=== PATIENT | female | born 1995 | race African-American/Black ===

== ENCOUNTER 2017-12-02 14:41 | Inpatient (IN) | payer OTHER ==
--- NOTE | 2017-11-28 22:10 | NUR ---
SCHEDULED MEDICATION GIVEN AND TOLERATED WELL. IMURAN NOT AVAILABLE IN [employer] NOR [employer]. CHARGE NURSE AP AWARE. CHISEL TRIMMER OMERO CONTACTED HOWEVER SHE DOES NOT HAVE ACCESS TO MEDICATION EITHER. DR. CEDILLO AND DR. GREY AWARE. MEDICATION WILL BECOME AVAILABLE IN THE MORNING BY PHARMACY. DOCUMENTED MEDICATION IS NOT AVAILABLE. Addendum: 12/03/17 at 0231 by Missy Leong RN PLEASE DISREGARD. WRONG DATE CHARTED.
[~2017-12-02] VITALS: Ht 165.1 cm; Wt 65.3 kg
[2017-12-02 14:46] VITALS: BP 114/69
[2017-12-02] MEDS ORDERED: ONDANSETRON 4 MG/2 ML VIAL IVP ONE (14:55)
[2017-12-02] MEDS ORDERED: MORPHINE SULFATE 4 MG/ML SYR IVP ONE ×2 (14:55→16:25)
[2017-12-02] MEDS ORDERED: NACL 0.9% 2,000 ML IV ONE (14:55)
--- NOTE | 2017-12-02 15:03 | NUR ---
PATIENT BIBA WITH COMPLAINTS OF RIGHT SIDED CHEST PAIN. PATIENT REPORTS SICKEL CELL CRISIS, , AND RHEMATOID ARTHRITIS. PATIENT STATES SEVERE PAIN 10/10. HEART RATE IS SINUS TACHY. [facility] ABLE TO OBTAIN IV IN RIGHT FOOT. PATIENT WAS FOUND AT [facility]. PATIENT REPORTS UNABLE TO EAT OR DRINK FOR 3 DAYS. PATIENT STARTED ON 1L NS PER VERBAL ORDER. PATIENT ASSISTED INTO GOWN AND PROVIDED BED ANDERSEN FOR URINE AMPLE. URINE SENT TO LAB. PATIENT POSITIONED FOR COMFORT; HOB ELEVATED; BEDRAILS UP X2; BED DOWN. ER MD MADE AWARE OF PT STATUS.
[2017-12-02 16:08] LABS: APPEARANCE,URINE SL CLOUDY (CLEAR); BLOOD, URINE 2+ (NEGATIVE); COLOR,URINE YELLOW (YELLOW); LEUKOCYTE ESTERASE ,URINE NEGATIVE (NEGATIVE); NITRITE, URINE NEGATIVE (NEGATIVE); PH,URINE 7.5 (5.0-9.0); UGLUCOSE NEGATIVE (NEGATIVE)
[2017-12-02 16:24] LABS: PROTHROMBIN TIME 10.5 secs (10.8-13.4)
[2017-12-02 16:28] LABS: BASOPHILS % (AUTO) 0.3 % (0.0-2.0); HEMATOCRIT 35.3 % (36-48); HEMOGLOBIN 11.6 g/dL (12.0-16.0); LYMPHOCYTES # (AUTO) 1.2 K/uL (2.5-16.5); LYMPHOCYTES % (AUTO) 30.5 % (20.5-51.1); MEAN CORPUSCULAR HEMOGLOBIN 27 pg (27-31); MEAN CORPUSCULAR HGB CONC 33 g/dL (33-37); MONOCYTES # (AUTO) 0.5 K/uL (0.8-1.0); MONOCYTES % (AUTO) 12.7 % (1.7-9.3); NEUTROPHILS # (AUTO) 2.2 K/uL (1.8-7.7); NEUTROPHILS % (AUTO) 56.5 % (42.2-75.2); PLATELET COUNT (AUTO) 425 K/uL (140-450); RED BLOOD CELL COUNT(AUTO) 4.35 MIL/uL (4.20-5.40); RED CELL DISTRIBUTION WIDTH 18.1 % (11.6-13.7)
[2017-12-02 16:29] LABS: ALBUMIN 3.1 g/dL (3.4-5.0); ANION GAP 15.8 (8-16); CARBON DIOXIDE 22.6 mmol/L (21-32); CREATININE 0.6 mg/dL (0.6-1.3); POTASSIUM 3.4 mmol/L (3.5-5.1); TOTAL BILIRUBIN 0.3 mg/dL (0.0-1.0)
[2017-12-02] MEDS ORDERED: HYDROmorphone PFS 2 MG/ML SYR IVP ONE (16:35)
[2017-12-02 16:56] LABS: BILIRUBIN,URINE NEGATIVE (NEGATIVE)
--- NOTE | 2017-12-02 17:09 | NUR ---
SPOKE WITH GILMER GARCIA AT [facility] TO GIVE REPORT.
--- NOTE | 2017-12-02 17:14 | NUR ---
RECIEVED CALL FROM LAB, PATIENT POSITIVE FOR ANTIBODY.
[2017-12-02] MEDS ORDERED: ACETAMINOPHEN 325 MG TAB PO PRN (17:40)
[2017-12-02] MEDS ORDERED: ONDANSETRON 4 MG/2 ML VIAL IM/IVP PRN (17:40)
[2017-12-02] MEDS ORDERED: HYDROcodone/APAP 5/325 MG 1 TAB TAB PO PRN (17:55)
[2017-12-02] MEDS ORDERED: MORPHINE SULFATE 2 MG/ML SYR IVP PRN (17:55)
--- NOTE | 2017-12-02 18:02 | NUR ---
Patient will be admitted to care of DR. COLLIER. Admited to TELE. Will go to room 112A. Belongings list completed. Report to DAVID CROSS.
[2017-12-02 18:16] VITALS: BP 130/90
--- NOTE | 2017-12-02 18:16 | NUR ---
PT ARRIVED FROM ER IN [facility], REPORT RECEIVED FROM ER NURSE, PT AWAKE ALERT, ABLE TO TRNASFER FROM [facility] TO BED, RESP EVEN UNLABORED, SKIN WARM DRY COLOR WNL FOR RACE, C/O 10/10 PAIN IN JOINTS THROUGH OUT THE BODY, WILL MEDICATE PER ORDER, PT ORIENTED TO ROOM AND FLOOR, PLAN OF CARE REVIEWED, ALL SAFETY MEASURES IN PLACE, WILL CONTINUE TO MONITOR.
[2017-12-02 18:18] LABS: BARBITURATE, URINE NEG. ng/ml (NEG <=200); BENZODIAZEPINE, URINE NEG. ng/mL (NEG <=200); CANNABINOID, URINE POS. ng/mL (NEG <=50); COCAINE, URINE NEG. ng/mL (NEG <=300); OPIATE, URINE POS. ng/mL (NEG <=2000); PHENCYCLIDINE SCREEN,URINE NEG. ng/mL (NEG <=25)
[2017-12-02 18:19] LABS: CHOL/HDL RATIO 3.5 (1-4.5); MAGNESIUM 1.7 mg/dL (1.8-2.4); PHOSPHORUS 3.8 mg/dL (2.5-4.9); THYROID STIMULATING HORMONE 0.16 uIU/mL (0.34-3.74)
--- NOTE | 2017-12-02 18:20 | NUR ---
PT PLACED ON BEDPAN FOR URINATION.
--- NOTE | 2017-12-02 18:30 | NUR ---
DR CEDILLO AT BEDSIDE FOR EVAL.
[2017-12-02] MEDS: NACL 0.9% 1,000 ML IV SCH (18:36)
[2017-12-02] MEDS ORDERED: HYDROMORPHONE HCL 4 MG PO SCH (18:45)
--- NOTE | 2017-12-02 18:49 | NUR ---
PT C/O PAIN 10/10 THROUGHOUT BODY JOINTS, OFFERED MORPHINE BUT REFUSED, PT REQUESTS DILAUDID, AWAITING DILAUDID ORDER FROM DR CEDILLO, PT STATES SHE WANTS TO WAIT FOR DILAUDID BECAUSE MORPHINE DOES NOT WORK.
[2017-12-02] MEDS ORDERED: AZAT50TA PO (19:04)
[2017-12-02] MEDS ORDERED: ACET-2863 PO (19:04)
[2017-12-02] MEDS ORDERED: ALPR0.5T2 PO (19:04)
[2017-12-02] MEDS ORDERED: HYDR200T5 PO (19:04)
[2017-12-02] MEDS ORDERED: QUET100T PO (19:04)
[2017-12-02] MEDS ORDERED: LOV40I SUBQ (19:04)
[2017-12-02] MEDS ORDERED: HYDR1LIQ6 PO (19:04)
[2017-12-02] MEDS ORDERED: LEFL20TA18 PO (19:04)
[2017-12-02] MEDS ORDERED: PRED20TA5 PO (19:04)
--- NOTE | 2017-12-02 19:20 | NUR ---
REPORT GIVEN TO DEVOPS ENGINEER NURSE DR MAMADOU CLEMENTE AT BEDSIDE. PT SITTING UP DRINKING JUICE, REGULAR DINNER TRAY LATE TRAY REQUESTED TO KITCHEN.
--- NOTE | 2017-12-02 19:21 | NUR ---
RECEIVED REPORT FROM DAY SHIFT NURSE DAVID-RN. PT FAMILY AT BEDSIDE. PT AOX4, ON ROOM AIR WITH IV SITE RIGHT FOOT #22G-NS RUNNING AT 100ML/HR. SKIN INTACT. ON TELE MONITORING. DISCUSSED PLAN OF CARE AND PT VERBALIZED UNDERSTANDING. NO S/S OF RESPIRATORY DISTRESS NOTED AT THIS TIME. PT C/O PAIN 02/16-WILL MEDICATE. BED IN LOWEST POSITION, BED BREAKS ON, AND BOTH SIDE RAILS UP. BED SIDE TABLE AND CALL LIGHT WITHIN REACH. WILL CONTINUE TO MONITOR.
[2017-12-02] MEDS ORDERED: HYDROmorphone 1 MG/ML AMP IVP SCH (19:30)
[2017-12-02] MEDS ORDERED: POTASSIUM CHLORIDE 8 MEQ TABER PO SCH (19:35)
[2017-12-02] MEDS ORDERED: MAGNESIUM OXIDE 400 MG TAB PO ONE (19:35)
--- NOTE | 2017-12-02 19:45 | NUR ---
MEDICATED PT WITH DILAUDID FOR PAIN 10/[address] CEDILLO. PT TOLERATED WELL. NO S/S OF RESPIRATORY DISTRESS. PT FAMILY CONTINUES TO BE AT BEDSIDE. WILL CONTINUE TO MONITOR.
[2017-12-02 20:00] VITALS: BP 131/95
--- NOTE | 2017-12-02 20:00 | NUR ---
VITAL SIGNS TAKEN AND TOLERATED WELL. O2 SAT 99% DESPITE NO OXYGEN SUPPLEMENT GIVEN AT THIS TIME DUE TO PT REFUSAL. NO S/S OF RESPIRATORY DISTRESS OR DISCOMFORT NOTED AT THIS TIME. WILL CONTINUE TO MONITOR.
[2017-12-02 20:35] LABS: RBC,URINE 11-20 (MOD) /HPF (0-5); WBC,URINE 0-5 (RARE) /HPF (0-5)
[2017-12-02] MEDS ORDERED: HYDROcodone/APAP 7.5/325 MG 1 TAB PO SCH (21:00)
[2017-12-02] MEDS ORDERED: ALPRAZolam 0.5 MG TAB PO SCH (21:00)
[2017-12-02] MEDS: azaTHIOprine 50 MG TAB PO SCH (21:00)
--- NOTE | 2017-12-02 21:00 | NUR ---
PT REFUSING TO TAKE MEDICATION UNTIL ANOTHER DOSE OF DILAUDID IS GIVEN. PT CONTINUES TO C/O PAIN 02/16. DR. CEDILLO AND DR. SHIRLEY AWARE AND WILL BE SPEAKING WITH PT.
--- NOTE | 2017-12-02 21:15 | NUR ---
CONTINUE TO OFFER OXYGEN ORDERED HOWEVER PT CONTINUES TO REFUSE OXYGEN AT THIS TIME DESPITE EDUCATING PT ON OXYGEN POSSIBLY HELPING TO DECREASE PAIN LEVEL. WILL CONTINUE TO MONITOR.
[2017-12-02] MEDS: HYDROcodone/APAP 10/325 MG 1 TAB TAB PO SCH (21:25)
[2017-12-02] MEDS ORDERED: MAGNESIUM OXIDE 400 MG TAB ONE (21:40)
[2017-12-02] MEDS ORDERED: HYDROcodone/APAP 7.5/325 MG 1 TAB ONE (21:41)
[2017-12-02] MEDS ORDERED: HYDROmorphone 2 MG TAB PO PRN (21:45)
[2017-12-02] MEDS: QUEtiapine FUMARATE 100 MG TAB PO SCH (22:08)
[2017-12-02] MEDS: HYDROXYCHLOROQUINE 200 MG TAB PO SCH (22:08)
--- NOTE | 2017-12-02 22:10 | NUR ---
SCHEDULED MEDICATION GIVEN AND TOLERATED WELL. IMURAN NOT AVAILABLE IN [facility] NOR [facility] [employer]. CHARGE NURSE AP AWARE. CIVIL ENGINEERING DRAFTSPERSON OMERO CONTACTED HOWEVER SHE DOES NOT HAVE ACCESS TO MEDICATION EITHER. DR. CEDILLO AND DR. GREY AWARE. MEDICATION WILL BECOME AVAILABLE IN THE MORNING BY PHARMACY. DOCUMENTED MEDICATION IS NOT AVAILABLE.
--- NOTE | 2017-12-02 22:10 | NUR ---
SCHEDULED MEDICATION GIVEN AND TOLERATED WELL. PT CONTINUES TO REFUSE OXYGEN VIA NASAL CANNULA DESPITE BREATHING DISCOMFORTS. WILL CONTINUE TO MONITOR.
[2017-12-02] MEDS: ENOXAPARIN 40 MG/0.4 ML SYR SUBQ SCH (22:20)
--- NOTE | 2017-12-02 22:20 | NUR ---
LOVENOX GIVEN AND TOLERATED WELL. WILL CONTINUE TO MONITOR.
--- NOTE | 2017-12-02 23:40 | NUR ---
PT REFUSED BLOOD DRAW FROM SALES DEPARTMENT MANAGER STATING, "I DON'T WANT TO GET STUCK AGAIN."
[2017-12-03] VITALS: BP 119/77
[2017-12-03] MEDS ORDERED: IBUPROFEN 800 MG TAB PO SCH
--- NOTE | 2017-12-03 | NUR ---
VITAL SIGNS TAKEN AND TOLERATED WELL. O2 SAT 100% DESPITE PT REFUSAL TO WEAR OXYGEN. NO S/S OF RESPIRATORY DISTRESS OR DISCOMFORT NOTED AT THIS TIME. WILL CONTINUE TO MONITOR.
--- NOTE | 2017-12-03 02:00 | NUR ---
PT SLEEPING AT THIS TIME. NO S/S OF RESPIRATORY DISTRESS OR DISCOMFORT NOTED AT THIS TIME. WILL CONTINUE TO MONITOR.
[2017-12-03 04:00] VITALS: BP 135/94
--- NOTE | 2017-12-03 04:00 | NUR ---
VITAL SIGNS TAKEN AND TOLERATED WELL. NO S/S OF RESPIRATORY DISTRESS. PT C/O PAIN 02/16-WILL MEDICATE. WILL CONTINUE TO MONITOR.
[2017-12-03] MEDS: MORPHINE SULFATE 2 MG/ML SYR IVP PRN ×3 (04:08→12:28)
--- NOTE | 2017-12-03 04:10 | NUR ---
MEDICATED FOR PAIN. PT TOLERATED WELL. NO S/S OF RESPIRATORY DISTRESS OR DISCOMFORT NOTED AT THIS TIME. WILL CONTINUE TO MONITOR.
[2017-12-03] MEDS: NACL 0.9% 1,000 ML IV SCH ×3 (04:16→23:38)
--- NOTE | 2017-12-03 04:20 | NUR ---
CHANGED IVF BAG ON NS 0.9%. PT FALLING BACK TO SLEEP. NO S/S OF RESPIRATORY DISTRESS OR DISCOMFORT NOTED AT THIS TIME. WILL CONTINUE TO MONITOR.
[2017-12-03] MEDS: HYDROcodone/APAP 10/325 MG 1 TAB TAB PO SCH (05:00)
--- NOTE | 2017-12-03 05:00 | NUR ---
PT REFUSED SCHEDULED NORCO MEDICATION. PT WANTS TO RETURN BACK TO SLEEP. WILL CONTINUE TO MONITOR.
[2017-12-03 06:13] LABS: T4 (THYROXINE) 10.5 ug/dL (4.5-12.0)
--- NOTE | 2017-12-03 06:30 | NUR ---
OFFERED NORCO PAIN MEDICATION AND PT REFUSED ONCE AGAIN. PT RETURNED BACK TO SLEEP. [facility]
--- NOTE | 2017-12-03 07:24 | NUR ---
ENDORSED PT CARE TO DAY SHIFT NURSE YADY-[place]ERICA FOR CONTINUITY OF CARE.
--- NOTE | 2017-12-03 07:26 | NUR ---
RECEIVED REPORT FROM FAMILY PROTECTION SPECIALIST RN. PATIENT IN STABLE CONDITION BUT COMPLAINING OF 10/10 GENERALIZED PAIN. MD IS AWARE. WILL ADMINISTER MORPHINE IVP PER MD ORDERS. PER PT, MAIN GOAL OF CARE IS PAIN CONTROL. PT IS ON BEDREST. SKIN INTACT. IV SITE PATENT AND RUNNING IVF PER MD ORDERS. ALL SAFETY MEASURES IN PLACE, WILL CONTINUE TO MONITOR. Addendum: 12/03/17 at 0831 by Ann Jurado Meng, RN PT REFUSING PO DILAUDID.
[2017-12-03 08:00] VITALS: BP 128/84
[2017-12-03] MEDS ORDERED: LEFLUNOMIDE 20 MG PO SCH (09:00)
[2017-12-03] MEDS: ENOXAPARIN 40 MG/0.4 ML SYR SUBQ SCH ×3 (09:00→20:11)
[2017-12-03] MEDS: HYDROXYCHLOROQUINE 200 MG TAB PO SCH ×4 (09:00→20:01)
[2017-12-03] MEDS: azaTHIOprine 50 MG TAB PO SCH ×4 (09:00→20:04)
[2017-12-03] MEDS: predniSONE 20 MG TAB PO SCH ×3 (09:00→12:26)
--- NOTE | 2017-12-03 09:00 | NUR ---
PATIENT HAS BEEN SCREENED AND CATEGORIZED LOW NUTRITION RISK. PATIENT WILL BE SEEN WITHIN 7 DAYS OF ADMISSION. 12/09/[address]
--- NOTE | 2017-12-03 09:58 | NUR ---
PT REFUSED ALL SCHEDULED 0900 MEDICATIONS. PO DILAUDID GIVEN PER MD ORDERS. PT SAYS SHE WILL CONSIDER TAKING THE SCHEDULED 0900 MEDS LATER TODAY.
--- NOTE | 2017-12-03 10:46 | NUR ---
INITIAL REVIEW FAXED ADMIT ORDER, ER REPORT, H&P, PROGRESS NOTES, EKG, MEDICATION LIST TO DEBBIE [phone] PHONE [phone] SHAYAN [id number]
[2017-12-03 12:00] VITALS: BP 133/92
--- NOTE | 2017-12-03 12:39 | NUR ---
ADMINISTERED PATIENT'S MORNING MEDS THAT SHE WAS REFUSING EARLIER. PT CONTINUES TO REFUSE LOVENOX SUBQ. WILL CONTINUE TO MONITOR.
[2017-12-03] MEDS ORDERED: HYDROcodone/APAP 5/325 MG 1 TAB TAB PO PRN (13:30)
--- NOTE | 2017-12-03 14:15 | NUR ---
DR. KUNZ IN ROOM TO TALK TO PT PER PT REQUEST.
[2017-12-03 14:44] LABS: BASOPHILS % (AUTO) 0.7 % (0.0-2.0); EOSINOPHILS % (AUTO) 0.1 % (0.0-4.0); HEMATOCRIT 31.4 % (36-48); HEMOGLOBIN 10.4 g/dL (12.0-16.0); LYMPHOCYTES % (AUTO) 23.7 % (20.5-51.1); MEAN CORPUSCULAR HEMOGLOBIN 27 pg (27-31); MEAN CORPUSCULAR HGB CONC 33 g/dL (33-37); MEAN CORPUSCULAR VOLUME 81.1 fL (80-94); MONOCYTES # (AUTO) 0.5 K/uL (0.8-1.0); MONOCYTES % (AUTO) 11.8 % (1.7-9.3); NEUTROPHILS # (AUTO) 2.6 K/uL (1.8-7.7); NEUTROPHILS % (AUTO) 63.7 % (42.2-75.2); PLATELET COUNT (AUTO) 339 K/uL (140-450); RED BLOOD CELL COUNT(AUTO) 3.86 MIL/uL (4.20-5.40); RED CELL DISTRIBUTION WIDTH 17.8 % (11.6-13.7); WHITE BLOOD COUNT (AUTO) 4.1 K/uL (4.8-10.8)
--- NOTE | 2017-12-03 14:48 | NUR ---
SCHEDULED NORCO GIVEN AT THIS TIME PER MD ORDERS. WILL CONTINUE TO MONITOR.
[2017-12-03 14:59] LABS: ANION GAP 11.8 (8-16); CARBON DIOXIDE 23.4 mmol/L (21-32); POTASSIUM 3.2 mmol/L (3.5-5.1)
[2017-12-03 15:13] LABS: MAGNESIUM 1.6 mg/dL (1.8-2.4); PHOSPHORUS 3.2 mg/dL (2.5-4.9)
--- NOTE | 2017-12-03 16:12 | NUR ---
DR. KUNZ IN ROOM TO DISCUSS PLAN OF CARE WITH PATIENT. Addendum: 12/03/17 at 1914 by Ann Jurado Meng, RN PT IS SOBBING. REFUSED 1600 VITALS.
--- NOTE | 2017-12-03 16:14 | NUR ---
RECEIVED A CALL FROM MILO HAMILTON, SHELLFISH SORTER. SHE SAID THE [facility] IS UNDER [facility] . I CALLED [facility] AND SPOKE WITH JESSICA. HE SAID TO FAX REVIEW TO [phone] PHONE [phone]. I FAXED INITIAL REVIEW.
[2017-12-03 18:00] VITALS: BP 133/92
[2017-12-03] MEDS ORDERED: HYDROmorphone 2 MG TAB PO PRN (18:00)
[2017-12-03] MEDS ORDERED: POTASSIUM CHLORIDE 10 MEQ TABER PO SCH (18:00)
[2017-12-03] MEDS ORDERED: MAGNESIUM OXIDE 400 MG TAB PO SCH (18:00)
--- NOTE | 2017-12-03 18:00 | NUR ---
PATIENT SOBBING AND SCREAMING, DEMANDING FOR DILAUDID IVP. MD WILL BE IN ROOM TO DISCUSS. O2 100%.
--- NOTE | 2017-12-03 18:30 | NUR ---
PT REPORTING 8/10 PAIN BUT REFUSING PO DILAUDID. MD AWARE. WILL CONTINUE TO MONITOR.
--- NOTE | 2017-12-03 18:38 | NUR ---
PATIENT REFUSED EKG. PATIENT IS SCREAMING AND UPSET. RESIDENTS AWARE
--- NOTE | 2017-12-03 18:50 | NUR ---
PT CONTINUES TO SCREAM AND SOB, DEMANDING FOR DILAUDID IVP. TOLD PT THAT ONLY PO DILAUDID IS AVAILABLE. PT CONTINUES TO REFUSE AND IS ASKING FOR DOCTOR. TOLD PT THAT ROLL TENDER MD WILL BE IN.
--- NOTE | 2017-12-03 19:26 | NUR ---
ENDORSED PLAN OF CARE TO REFRIGERATOR CABINETMAKER. MD TO TALK TO PATIENT REGARDING CONCERNS.
--- NOTE | 2017-12-03 19:27 | NUR ---
RECEIVED REPORT FROM DAY SHIFT NURSE YADY-RN. PT FAMILY AT BEDSIDE. PT AOX4, ON ROOM AIR WITH IV SITE RIGHT FOOT #22G-NS RUNNING AT 100ML/HR. SKIN INTACT. NO S/S OF RESPIRATORY DISTRESS NOTED AT THIS TIME-CONTINUES TO REFUSE OXYGEN. PT C/O PAIN 02/16, MOANING AND YELLING LOUDLY REFUSING PO DILAUDID AND REQUESTING DILAUDID IV WANTING TO SPEAK TO DR. SHIRLEY. BED IN LOWEST POSITION, BED BREAKS ON, AND BOTH SIDE RAILS UP. BED SIDE TABLE AND CALL LIGHT WITHIN REACH. WILL CONTINUE TO MONITOR.
--- NOTE | 2017-12-03 19:40 | NUR ---
PT REFUSES TO TAKE SCHEDULED MEDICATION UNTIL PAIN MEDICATION IS GIVEN. PT HAS BEEN REFUSING SCHEDULED MEDICATION AND TREATMENT THROUGHOUT DAY SHIFT. DR. SHIRLEY AND CHARGE NURSE AP COCHRAN.
--- NOTE | 2017-12-03 19:40 | NUR ---
SECURITY CALLED FOR PT COMBATIVE BEHAVIOR. CHARGE NURSE AP JUAN AND SARAH GARCIA ALSO IN PT ROOM TO DE-ESCALATE BEHAVIOR. PT HAS TAKEN OFF HER GOWN AND HAS URINATED ON CHUX. PT CONTINUES TO YELL STATING "I'M IN SO MUCH PAIN AND NO ONE WILL LISTEN TO ME! I'VE BEEN WAITING ALL MORNING! I WANT IV DILAUDID!" DR. SHIRLEY IN TO SEE PT AND IS TO PLACE AN ORDER FOR MORPHINE SULFATE 4MG/ML IVP ONCE AND IS TO RECEIVE PO DILAUDID Q6H. NORCO AVAILABLE. PT AWARE. PT GOWN AND CHUX WERE CHANGED. PT BACK IN BED WITH FRESH LINENS FOR COMFORT. NO S/S OF RESPIRATORY DISTRESS. WILL MEDICATE.
[2017-12-03 20:00] VITALS: BP 149/101
[2017-12-03] MEDS ORDERED: MORPHINE SULFATE 4 MG/ML SYR IVP SCH (20:00)
--- NOTE | 2017-12-03 20:00 | NUR ---
VITAL SIGNS TAKEN AND TOLERATED WELL. SCHEDULED MEDICATION GIVEN. MORPHINE SULFATE AND DILAUDID GIVEN ORDERED BY DR. SHIRLEY. PT TOLERATED WELL. NO S/S OF RESPIRATORY DISTRESS OR DISCOMFORT. PT COMFORTABLE IN BED ON HER CELLPHONE. PT REFUSED LOVENOX SUBQ INJECTION. WILL CONTINUE TO MONITOR.
[2017-12-03] MEDS: HYDROmorphone 2 MG TAB PO PRN (20:01)
[2017-12-03] MEDS: QUEtiapine FUMARATE 100 MG TAB PO SCH (20:01)
[2017-12-03] MEDS ORDERED: ALPRAZolam 0.5 MG TAB PO SCH (21:00)
--- NOTE | 2017-12-03 22:00 | NUR ---
PT SLEEPING IN BED. NO S/S OF RESPIRATORY DISTRESS OR DISCOMFORT NOTED AT THIS TIME. WILL CONTINUE TO MONITOR.
[2017-12-04] VITALS: BP 125/86
--- NOTE | 2017-12-04 | NUR ---
VITAL SIGNS TAKEN AND TOLERATED WELL. NO S/S OF RESPIRATORY DISTRESS. PT C/O PAIN- WILL MEDICATE. WILL CONTINUE TO MONITOR.
[2017-12-04] MEDS: HYDROcodone/APAP 10/325 MG 1 TAB TAB PO PRN ×2 (00:17→05:17)
--- NOTE | 2017-12-04 00:20 | NUR ---
MEDICATED PT WITH NORCO. PT TOLERATED WELL. PT REQUESTING HER PO DILAUDID SOON IT BECOMES AVAILABLE. PT ALLOWED CAGE/VAULT SUPERVISOR TO TRY ONCE AND WAS UNSUCCESSFUL. REFUSED CAGE/VAULT SUPERVISOR TO TRY A SECOND TIME FOR HER SCHEDULED BLOOD DRAW. WILL CONTINUE TO MONITOR.
--- NOTE | 2017-12-04 02:00 | NUR ---
PT SLEEPING IN BED. NO S/S OF RESPIRATORY DISTRESS OR DISCOMFORT NOTED AT THIS TIME. WILL CONTINUE TO MONITOR.
[2017-12-04] MEDS: NACL 0.9% 1,000 ML IV SCH (03:09)
[2017-12-04] MEDS: HYDROmorphone 2 MG TAB PO PRN ×3 (03:09→12:26)
--- NOTE | 2017-12-04 03:10 | NUR ---
PT C/O PAIN 02/16- MEDICATED WITH PO DILAUDID. PT TOLERATED WELL. NO S/S OF RESPIRATORY DISTRESS AT THIS TIME. WILL CONTINUE TO MONITOR.
--- NOTE | 2017-12-04 04:30 | NUR ---
PT C/O PAIN 02/16 AND ASKED TO SPEAK WITH DR. SHIRLEY. AWARE AND IS TO COME IN TO SEE PT. CURRENTLY CHANGING DILAUDID FREQUENCY FROM Q6H TO Q4H.
--- NOTE | 2017-12-04 05:00 | NUR ---
DR. SHIRLEY IN PT ROOM. PT C/O 02/16 PAIN REQUESTING PO DILAUDID AND IV MORPHINE FOR PAIN. MD REMINDED HER OF THEIR EARLIER CONVERSATION WHERE SHE WAS TOLD THAT SHE WOULD NO LONGER RECEIVE IV MORPHINE OR DILAUDID ONLY PO. PT BEGAN TO YELL AND SCREAM "I DON'T KNOW WHY YOU GUYS DON'T LISTEN TO ME! I'M IN SO MUCH PAIN!" DR SHIRLEY GAVE HER THE OPTION TO TAKE TYLENOL MEANWHILE NORCO BECOMES AVAILABLE AGAIN AND PT BEGAN TO YELL AND SCREAM AGAIN STATING "I ALREADY TOLD YOU I AM ALLERGIC TO TYLENOL." PT HAS CLAIMED SHE IS ALLERGIC TO IBUPROFEN -MD AWARE.
--- NOTE | 2017-12-04 05:20 | NUR ---
NORCO GIVEN FOR PAIN MANAGEMENT. PT TOLERATED WELL. NO S/S OF RESPIRATORY DISTRESS. CHARGE NURSE CALLED BICYCLE ASSEMBLER OMERO AND INFORMED HER OF PT REQUEST TO SPEAK WITH HER.
--- NOTE | 2017-12-04 05:21 | NUR ---
PT WAS SCREAMING AND ASKED FOR PAIN MED.WAS NOT TIME FOR HER PAIN MED YET.TALKED W/RESIDENT AND HE SAID THAT IS OK TO GIVE HER NORCO NOW MEANS ONE HOUR EARLY.CHYNA CROSS GAVE IT TO HER.SHE IS DROWSY AND STILL WANTS PAIN MED.
--- NOTE | 2017-12-04 06:01 | NUR ---
CALLED CARDIOLOGY TECH OMERO AGAIN HOWEVER SHE IS UNABLE TO TAKE THE PHONE CALL AT THIS TIME. SHE SAID SHE WOULD CALL ME BACK SOON POSSIBLE.
--- NOTE | 2017-12-04 06:23 | NUR ---
PT REQUESTING TO TALK TO A FEMALE DOCTOR STATING "I DON'T WANT A MALE DOCTOR." CALLED RESIDENTS PHONE AND DR. BERNAL SAID THEY ARE CURRENTLY ON SHIFT CHANGE AND INFORMED ME THAT DR. KUNZ IS HER DOCTOR. SOON THEY ARE AVAILABLE DR. KUNZ WILL COME AND SEE PT.
--- NOTE | 2017-12-04 06:45 | NUR ---
DR. KUNZ CAME IN TO SEE PT. EXPLAINED AGAIN THAT THEY ARE UNABLE TO GIVE IV PAIN MEDICATION. PT BEGAN TO YELL STATING "I DON'T UNDERSTAND YOU PEOPLE! I KEEP TELLING YOU THAT PO MEDICATION IS NOT WORKING!" EXPLAINED TO PT THAT DILAUDID MEDICATION WILL BE AVAILABLE SOON AND WILL BE GIVEN. PT BEGAN TO YELL AGAIN STATING SHE NEEDS IV PAIN MEDICATION STATING, "MY PAIN WAS COMPLETELY GONE WHEN SHE GAVE ME 4 MG OF IV MORPHINE AND 4MG OF PO DILAUDID. ONLY THAT WORKS FOR ME." EXPLAINED TO HER AGAIN THAT THEY ARE UNABLE TO GIVE HER IV PAIN MEDICATION. PT WANTS TO SPEAK TO ATTENDING DR. DR. KUNZ LET HER KNOW THAT HER ATTENDING DR WILL BE IN TO SEE HER ALONG WITH A GROUP OF RESIDENTS TO SPEAK WITH HER JUST LIKE THEY DID YESTERDAY MORNING. PT STATED SHE DOES NOT WANT MALE DOCTORS BECAUSE MALES MAKE HER ANXIOUS. AWARE.
--- NOTE | 2017-12-04 06:55 | NUR ---
PO DILAUDID GIVEN AND TOLERATED WELL. NO S/S OF RESPIRATORY DISTRESS. WILL CONTINUE TO MONITOR.
--- NOTE | 2017-12-04 07:19 | NUR ---
ENDORSED PT CARE TO DAY SHIFT NURSE JUSTIN FOR CONTINUITY OF CARE.
--- NOTE | 2017-12-04 07:20 | NUR ---
RECEIVED REPORT FROM CHEESE CUTTER NURSE. PT IS SLEEPING IN BED AT THIS TIME BUT EASILY AWAKEN, PT IS AAOX4, BEDREST, IV IS ON THE RIGHT FOOT, PATENT, INTACT, FLUSHING WELL, NO S/S OF RESPIRATORY DISTRESS OR DISCOMFORT NOTED AT THIS TIME, PT IS ON ROOM AIR, DISCUSSED PLAN OF CARE WITH PT, PT REINFORCEMENT NEEDED, SAFETY/FALL PRECAUTIONS ARE IN PLACE, CALL LIGHT IS WITHIN REACH, WILL CONTINUE TO MONITOR.
[2017-12-04 08:00] VITALS: BP 132/83
[2017-12-04 08:03] LABS: CARBON DIOXIDE 21.3 mmol/L (21-32); CREATININE 0.6 mg/dL (0.6-1.3); POTASSIUM 3.3 mmol/L (3.5-5.1)
[2017-12-04 08:26] LABS: MAGNESIUM 1.4 mg/dL (1.8-2.4); PHOSPHORUS 3.3 mg/dL (2.5-4.9)
[2017-12-04] MEDS ORDERED: MAGNESIUM OXIDE 400 MG TAB PO SCH (08:50)
[2017-12-04] MEDS ORDERED: POTASSIUM CHLORIDE 10 MEQ TABER PO SCH (08:50)
[2017-12-04] MEDS: azaTHIOprine 50 MG TAB PO SCH (09:00)
[2017-12-04] MEDS: ENOXAPARIN 40 MG/0.4 ML SYR SUBQ SCH (09:00)
[2017-12-04] MEDS: predniSONE 20 MG TAB PO SCH (09:00)
[2017-12-04] MEDS: HYDROXYCHLOROQUINE 200 MG TAB PO SCH (09:00)
--- NOTE | 2017-12-04 09:20 | NUR ---
PATIENT REQUESTING TO SPEAK TO DATA REPORTING ANALYST. I CALLED DATA REPORTING ANALYST (MILKA) I LET HIM KNOW THE PATIENT WAS REQUESTING TO SPEAK TO THE DATA REPORTING ANALYST AND HAD REQUESTED TO SPEAK TO THE DATA REPORTING ANALYST LAST NIGHT BUT NO ONE CAME TO SPEAK TO HER.
--- NOTE | 2017-12-04 09:22 | NUR ---
PT REFUSED HER MORNING MEDICATIONS PT STATED, " I AM NOT GOING TO TAKE ANYTHING UNTIL I SPEAK TO A WATCH ASSEMBLER."
--- NOTE | 2017-12-04 11:15 | NUR ---
LINUX ADMINISTRATOR IN PATIENT'S ROOM SPEAKING WITH PATIENT.
--- NOTE | 2017-12-04 11:26 | NUR ---
PT REFUSED DILAUDID PO AT THIS TIME. PT STATED," I AM NOT GOING TO TAKE ANYTHING YOU GUYS GIVE, I ALREADY TOLD YOU HOW I TAKE MY MEDICATION."
[2017-12-04] MEDS ORDERED: NITROFURANTOIN 100 MG CAP PO SCH ×2 (13:20→13:40)
--- NOTE | 2017-12-04 15:15 | NUR ---
PT DISCHARGE INSTRUCTIONS GIVEN, PT IV REMOVED, CATHETER TIP INTACT, PT ID WRIST BAND REMOVED. PT STABLE UPON DISCHARGE.
== END 2017-12-04 15:15 | disposition home or self-care (01) | DRG 566 ==
LOC: MED 14:41 → MTU 17:43
PROVIDERS: ADMIT Family Medicine; ATTEND Family Medicine
DX: O99.411 Diseases of the circulatory system complicating pregnancy, first trimester (principal); N17.0 Acute kidney failure with tubular necrosis; D57.00 Hb-SS disease with crisis, unspecified; M32.9 Systemic lupus erythematosus, unspecified; O26.831 Pregnancy related renal disease, first trimester; O23.41 Unspecified infection of urinary tract in pregnancy, first trimester; E88.09 Other disorders of plasma-protein metabolism, not elsewhere classified; I24.9 Acute ischemic heart disease, unspecified; E83.42 Hypomagnesemia; O99.89 Other specified diseases and conditions complicating pregnancy, childbirth and the puerperium; O99.011 Anemia complicating pregnancy, first trimester; M94.0 Chondrocostal junction syndrome [Tietze]; J45.909 Unspecified asthma, uncomplicated; O99.341 Other mental disorders complicating pregnancy, first trimester; O34.81 Maternal care for other abnormalities of pelvic organs, first trimester; M06.9 Rheumatoid arthritis, unspecified; E83.51 Hypocalcemia; M79.7 Fibromyalgia; N83.202 Unspecified ovarian cyst, left side; O99.511 Diseases of the respiratory system complicating pregnancy, first trimester; F41.1 Generalized anxiety disorder; O25.11 Malnutrition in pregnancy, first trimester; O99.281 Endocrine, nutritional and metabolic diseases complicating pregnancy, first trimester; O30.001 Twin pregnancy, unspecified number of placenta and unspecified number of amniotic sacs, first trimester; E87.6 Hypokalemia; F41.9 Anxiety disorder, unspecified; Z88.6 Allergy status to analgesic agent; Z88.1 Allergy status to other antibiotic agents; Z88.0 Allergy status to penicillin; Z91.19 Patient's noncompliance with other medical treatment and regimen; Z3A.10 10 weeks gestation of pregnancy
CPT/HCPCS: 36415; 71045; 76801; 80048; 80053; 80305; 81001; 83036; 83605; 83735; 83880; 84100; 84436; 84443; 84479; 84484; 84702; 85025; 85045; 85610; 85730; 86870; 86880; 86886; 86900; 86901; 87040; 87081; 87086; 93005; 96374; 96375; 96376; 99285; J1170; J1650; J2270; J2405; J7030; J7512; Q0092

== ENCOUNTER 2018-01-02 08:26 | Emergency (ER) | payer OTHER ==
[~2018-01-02] VITALS: Ht 165.1 cm; Wt 59.0 kg
[~2018-01-02 08:26] MED LIST: ACET-2863 PO; ALPR0.5T2 PO; AZAT50TA PO; HYDR1LIQ6 PO; HYDR200T5 PO; LEFL20TA18 PO; LOV40I SUBQ; PRED20TA5 PO; QUET100T PO
[2018-01-02 08:28] VITALS: BP 102/80
--- NOTE | 2018-01-02 08:32 | NUR ---
22 yo female biba from home for sudden onset of vaginal bleeding, approx 13 weeks with , awake and alert, c/o rlq pain. DENIES N/V/D; SKIN IS PINK/WARM/DRY; AAOX4 WITH EVEN AND STEADY GAIT; LUNGS CLEAR BL. PATIENT STATES PAIN OF 8/10 AT THIS TIME; VSS; PATIENT POSITIONED FOR COMFORT; HOB ELEVATED; BEDRAILS UP X2; BED DOWN. GREG NOLAN MADE AWARE OF PT STATUS. Addendum: 01/02/18 at 1037 by [facility] no bleeding per vagina at this time.
[2018-01-02] MEDS ORDERED: NACL 0.9% 1,000 ML IV SCH (08:49)
[2018-01-02] MEDS ORDERED: ONDANSETRON 4 MG/2 ML VIAL IVP ONE (08:50)
[2018-01-02] MEDS ORDERED: MORPHINE SULFATE 2 MG/ML SYR IVP ONE (08:50)
[2018-01-02] MEDS ORDERED: diphenhydrAMINE 50 MG/ML VIAL IVP ONE (09:15)
--- NOTE | 2018-01-02 09:16 | NUR ---
US AT BEDSIDE
[2018-01-02 09:22] LABS: BASOPHILS % (AUTO) 0.3 % (0.0-2.0); HEMATOCRIT 31.5 % (36-48); HEMOGLOBIN 10.7 g/dL (12.0-16.0); LYMPHOCYTES # (AUTO) 0.5 K/uL (2.5-16.5); MEAN CORPUSCULAR HEMOGLOBIN 27 pg (27-31); MEAN CORPUSCULAR HGB CONC 34 g/dL (33-37); MONOCYTES # (AUTO) 0.3 K/uL (0.8-1.0); MONOCYTES % (AUTO) 13.2 % (1.7-9.3); NEUTROPHILS # (AUTO) 1.6 K/uL (1.8-7.7); NEUTROPHILS % (AUTO) 64.5 % (42.2-75.2); PLATELET COUNT (AUTO) 265 K/uL (140-450); RED BLOOD CELL COUNT(AUTO) 4.04 MIL/uL (4.20-5.40); RED CELL DISTRIBUTION WIDTH 17.2 % (11.6-13.7); WHITE BLOOD COUNT (AUTO) 2.5 K/uL (4.8-10.8)
--- NOTE | 2018-01-02 09:31 | NUR ---
PT MAHINATED , SENT SPECIMEN TO LAB.
[2018-01-02 09:45] LABS: ANION GAP 10.7 (8-16); CARBON DIOXIDE 23.5 mmol/L (21-32); CREATININE 0.3 mg/dL (0.6-1.3); POTASSIUM 3.2 mmol/L (3.5-5.1)
--- NOTE | 2018-01-02 09:45 | NUR ---
pt c/o pain . pt stated " i want dilaudid 1mg for pain. notified dr SALINAS.
[2018-01-02 09:48] LABS: BARBITURATE, URINE NEG. ng/ml (NEG <=200); BENZODIAZEPINE, URINE NEG. ng/mL (NEG <=200); CANNABINOID, URINE NEG. ng/mL (NEG <=50); COCAINE, URINE NEG. ng/mL (NEG <=300); OPIATE, URINE POS. ng/mL (NEG <=2000); PHENCYCLIDINE SCREEN,URINE NEG. ng/mL (NEG <=25)
[2018-01-02] MEDS ORDERED: HYDROmorphone 1 MG/ML AMP IVP ONE ×2 (09:50→10:50)
[2018-01-02 09:51] LABS: ALBUMIN 2.8 g/dL (3.4-5.0); TOTAL BILIRUBIN 0.5 mg/dL (0.0-1.0)
[2018-01-02 09:56] LABS: APPEARANCE,URINE HAZY (CLEAR); BILIRUBIN,URINE 1+ (NEGATIVE); BLOOD, URINE 3+ (NEGATIVE); COLOR,URINE YELLOW (YELLOW); LEUKOCYTE ESTERASE ,URINE NEGATIVE (NEGATIVE); NITRITE, URINE NEGATIVE (NEGATIVE); PH,URINE 6.5 (5.0-9.0); UGLUCOSE NEGATIVE (NEGATIVE)
--- NOTE | 2018-01-02 10:03 | NUR ---
US AT BEDSIDE.
[2018-01-02 10:17] LABS: RBC,URINE 3-10 (FEW) /HPF (0-5)
[2018-01-02 10:18] LABS: WBC,URINE 0-5 (RARE) /HPF (0-5)
--- NOTE | 2018-01-02 11:00 | NUR ---
NO BLEEDING PER VAGINA AT THIS TIME. Patient appears to be resting comfortably in bed. Vital Signs within normal limits. Respirations even and unlabored. WILL CONTINUE TO MONITOR.
--- NOTE | 2018-01-02 11:26 | NUR ---
Patient discharged with v/s stable. Written and verbal after care instructions given and explained. Patient verbalized understanding. Wheel Chair Assisted with to car. All questions addressed prior to discharge. Advised to follow up with PMD.
[2018-01-02 11:27] VITALS: BP 104/54
== END 2018-01-02 11:26 | disposition home or self-care (01) ==
LOC: MED 08:26
DX: O46.92 Antepartum hemorrhage, unspecified, second trimester (principal); O30.002 Twin pregnancy, unspecified number of placenta and unspecified number of amniotic sacs, second trimester; Z3A.14 14 weeks gestation of pregnancy; Z88.0 Allergy status to penicillin; Z88.1 Allergy status to other antibiotic agents; Z88.6 Allergy status to analgesic agent
CPT/HCPCS: 36415; 76805; 76810; 80053; 80305; 81001; 81025; 82150; 83690; 84702; 85025; 86900; 86901; 96374; 96375; 96376; 99285; J1170; J1200; J2270; J2405; Q0092; C1758

== ENCOUNTER 2018-03-10 20:09 | Inpatient (IN) | payer MEDICAID, OTHER ==
[~2018-03-10] VITALS: Ht 165.1 cm; Wt 78.9 kg
[2018-03-10 20:09] VITALS: BP 153/88
--- NOTE | 2018-03-10 20:09 | NUR ---
22/F BIBA FOR "JOINT PAIN ALL OVER," X2 DAYS. PT REPORTS N/V/D X3 DAYS. PT REPORTS RECENT HX CDIFF 1 WEEK AGO DX FROM [place], PT REPORT TAKING VANCOMYCIN. PT REPORTS BEING 23 WEEKS , LMP UNSURE/UNKNOWN PER PT. LUNG SOUNDS CLEAR BL. BS ACTIVE X4, ABD FIRM GRAVID NONTENDER. AOX4, AMBULATORY, RR EVEN AND SLIGHTLY LABORED, PT IN MODERATE DISTRESS WITH FACIAL GRIMACING AND RESTLESSNESS. HX LUPUS, RA, FIBROMYALGIA, RECENT C.DIFF RX VANCOMYCIN, DILAUDID
--- NOTE | 2018-03-10 20:10 | NUR ---
PT IS UNABLE TO COLLECT URINE SAMPLE AT THIS TIME, WILL ATTEMPT LATER
[2018-03-10] MEDS ORDERED: MORPHINE SULFATE 10 MG/ML SYR IVP ONE (20:15)
[2018-03-10] MEDS ORDERED: METOCLOPRAMIDE 10 MG/2 ML INJ VIAL IVP ONE (20:15)
[2018-03-10] MEDS ORDERED: NACL 0.9% 1,000 ML IV ONE (20:20)
[2018-03-10] MEDS ORDERED: MORPHINE SULFATE 4 MG/ML SYR ONE (20:29)
[2018-03-10 20:48] LABS: BASOPHILS % (AUTO) 0.7 % (0.0-2.0); HEMATOCRIT 33.1 % (36-48); HEMOGLOBIN 10.7 g/dL (12.0-16.0); LYMPHOCYTES # (AUTO) 1.1 K/uL (2.5-16.5); LYMPHOCYTES % (AUTO) 23.7 % (20.5-51.1); MEAN CORPUSCULAR HEMOGLOBIN 25 pg (27-31); MEAN CORPUSCULAR HGB CONC 32 g/dL (33-37); MEAN CORPUSCULAR VOLUME 76.7 fL (80-94); MONOCYTES # (AUTO) 0.5 K/uL (0.8-1.0); MONOCYTES % (AUTO) 10.2 % (1.7-9.3); NEUTROPHILS # (AUTO) 3.1 K/uL (1.8-7.7); NEUTROPHILS % (AUTO) 65.4 % (42.2-75.2); PLATELET COUNT (AUTO) 398 K/uL (140-450); RED BLOOD CELL COUNT(AUTO) 4.32 MIL/uL (4.20-5.40); WHITE BLOOD COUNT (AUTO) 4.7 K/uL (4.8-10.8)
[2018-03-10] MEDS ORDERED: diphenhydrAMINE 50 MG/ML VIAL IVP ONE (20:55)
[2018-03-10 21:04] LABS: ALBUMIN 2.2 g/dL (3.4-5.0); ANION GAP 18.5 (8-16); CARBON DIOXIDE 18.9 mmol/L (21-32); CREATININE 0.5 mg/dL (0.6-1.3); POTASSIUM 3.4 mmol/L (3.5-5.1); TOTAL BILIRUBIN 0.3 mg/dL (0.0-1.0)
--- NOTE | 2018-03-10 21:04 | NUR ---
PT C/O ITCHING ON RLE AFTER MORPHINE IVP, NO HIVES NOTED. ER MD MADE AWARE. ADMINISTERED BENADRYL IVP WITH EDUCATION, PT TOLERATED WELL.
--- NOTE | 2018-03-10 21:10 | NUR ---
PT C/O UNRELIEVED PAIN DESPITE MORPHINE IVP, PT RESTING IN BED, RR EVEN AND UNLABORED, VS NOTED.
--- NOTE | 2018-03-10 21:15 | NUR ---
US TECH AT BEDSIDE
--- NOTE | 2018-03-10 21:16 | NUR ---
PT IN SEMIFOWLER DURING US, PT REFUSING TO LAY SUPINE DUE TO PAIN.
[2018-03-10 21:29] LABS: RED CELL DISTRIBUTION WIDTH 20.4 % (11.6-13.7)
--- NOTE | 2018-03-10 21:35 | NUR ---
RECEIVED CALL FROM LAB WHO STATED THAT THERE IS NO SICKLING IN SLIDES. PT ALSO C/O UNRELIEVED PAIN WHILE HAVING US PERFORMED. ER MD MADE AWARE. PER ER MD, CANCEL US, ORDERS PENDING.
--- NOTE | 2018-03-10 22:13 | NUR ---
PT RESTING IN BED, VS NOTED, PT REPORTS 10/10 JOINT PAIN AND ABD PAIN, NO NAUSEA/VOMITING OR ITCHING AT THIS TIME. ER MD AWARE. AWAITING MSE
--- NOTE | 2018-03-10 22:30 | NUR ---
PT REPORTS UNRELIEVED 10/10 JOINT PAIN "ALL OVER." PT WITH FACIAL GRIMACING AND MILD RESTLESSNESS. ER MD MADE AWARE, MD STATED THAT HE DOES NOT WANT TO GIVE PT MORE PAIN MEDICATIONS AT THIS TIME, AWAITING MSE.
[2018-03-10 22:31] LABS: APPEARANCE,URINE CLEAR (CLEAR); BILIRUBIN,URINE NEGATIVE (NEGATIVE); BLOOD, URINE 1+ (NEGATIVE); COLOR,URINE YELLOW (YELLOW); UGLUCOSE NEGATIVE (NEGATIVE)
[2018-03-10 22:32] LABS: LEUKOCYTE ESTERASE ,URINE NEGATIVE (NEGATIVE); NITRITE, URINE NEGATIVE (NEGATIVE)
[2018-03-10 22:34] LABS: RBC,URINE 0-5 (RARE) /HPF (0-5)
--- NOTE | 2018-03-10 23:19 | NUR ---
ER REQUESTING PT'S MEDICAL RECORDS FROM [facility], PT REPORTS INPATIENT STAY ON 02/17/18 FOR 4 DAYS, SIGNED AUTHORIZATION FOR PATIENT INFORMATION FAXED BY MANAGER GYN
--- NOTE | 2018-03-10 23:47 | NUR ---
Patient being evaluated by at bedside.
--- NOTE | 2018-03-10 23:50 | NUR ---
PT EXPRESSING THAT SHE WANTS TO LEAVE. DR BAILEY AT BEDSIDE TO EVALUATE PT. PT ADVISING PT TO STAY FOR ADMISSION FOR TX OF C.DIFF. PT AGREEING TO STAY FOR ADMISSION AT THIS TIME.
[2018-03-11] MEDS ORDERED: metroNIDAZOLE 500 MG/NS PREMIX 100 ML IV ONE
[2018-03-11] MEDS ORDERED: MORPHINE SULFATE 4 MG/ML SYR IVP ONE
--- NOTE | 2018-03-11 00:36 | NUR ---
LISSETH FROM [facility] GIVEN REPORT ON PATIENT FOR TRANSFERRING PURPOSES.
[2018-03-11] MEDS ORDERED: diphenhydrAMINE 50 MG/ML VIAL IVP ONE (00:45)
[2018-03-11] MEDS ORDERED: NACL 0.9% 1,000 ML IV SCH (01:27)
[2018-03-11] MEDS ORDERED: ONDANSETRON 4 MG/2 ML VIAL IM/IVP PRN (01:30)
[2018-03-11] MEDS ORDERED: ZOLPIDEM 5 MG TAB PO PRN (01:30)
[2018-03-11] MEDS ORDERED: LORazepam 2 MG/ML VIAL IM/IVP PRN (01:30)
[2018-03-11] MEDS ORDERED: ACETAMINOPHEN 325 MG TAB PO PRN (01:30)
[2018-03-11] MEDS ORDERED: DOCUSATE SODIUM 100 MG GELCAP PO PRN (01:30)
[2018-03-11] MEDS ORDERED: POTASSIUM CHLORIDE 10 MEQ TABER PO ONE (02:00)
[2018-03-11] MEDS ORDERED: METOCLOPRAMIDE 10 MG/2 ML INJ VIAL IVP SCH (02:00)
[2018-03-11 02:13] LABS: BARBITURATE, URINE NEG. ng/ml (NEG <=200); BENZODIAZEPINE, URINE NEG. ng/mL (NEG <=200); CANNABINOID, URINE NEG. ng/mL (NEG <=50); COCAINE, URINE NEG. ng/mL (NEG <=300); OPIATE, URINE POS. ng/mL (NEG <=2000); PHENCYCLIDINE SCREEN,URINE NEG. ng/mL (NEG <=25)
--- NOTE | 2018-03-11 02:25 | NUR ---
Patient will be admitted to care of HOLLY DOUGLAS. Admited to TELE. Will go to room 120B. Belongings list completed. Report to [facility].
[2018-03-11 02:30] VITALS: BP 169/109
--- NOTE | 2018-03-11 02:30 | NUR ---
RECEIVED FROM ER. PT AWAKE ALERT ORIENTED X 4. PT TELE. PT NOT IN RESPIRATORY DISTRESS. PT NOT IN PAIN AT THIS TIME. NO NAUSEA/ VOMITING, NOTED. PT W/ R EJ, PATENT AND INTACT. PT 2-3 WEEKS . PT BED AT LOWEST POSITION. WILL CONTINUE TO MONITOR
[2018-03-11 02:47] LABS: CHOL/HDL RATIO 5.3 (1-4.5); MAGNESIUM 1.7 mg/dL (1.8-2.4); PHOSPHORUS 2.8 mg/dL (2.5-4.9); THYROID STIMULATING HORMONE 1.7 uIU/mL (0.34-3.74)
[2018-03-11 02:50] LABS: PROTHROMBIN TIME 9.2 secs (10.8-13.4)
[2018-03-11] MEDS ORDERED: MAG SULF 2000 MG/WATER PREMIX 50 ML IV ONE (02:50)
[2018-03-11] MEDS ORDERED: GABA300C PO (02:55)
[2018-03-11] MEDS ORDERED: LACT10CA PO (02:55)
[2018-03-11] MEDS ORDERED: LABE300T5 PO (02:55)
[2018-03-11] MEDS ORDERED: PRED10TA5 PO (02:55)
[2018-03-11] MEDS ORDERED: PRED10TA99 PO (02:55)
[2018-03-11] MEDS ORDERED: VANC125C11 PO (02:55)
[2018-03-11] MEDS ORDERED: LOV40I SUBQ (02:55)
[2018-03-11] MEDS ORDERED: HYDR2TAB6 PO (02:55)
[2018-03-11] MEDS ORDERED: PRED20TA5 PO (02:55)
[2018-03-11] MEDS ORDERED: DOCU-299 PO (02:55)
[2018-03-11] MEDS ORDERED: ALPR0.5T2 PO (02:55)
[2018-03-11] MEDS ORDERED: HYDR200T5 PO (02:56)
[2018-03-11] MEDS ORDERED: HYDROmorphone 2 MG TAB PO PRN (03:00)
--- NOTE | 2018-03-11 03:00 | NUR ---
PT C/O OF 02/16 PAIN BP WENT UP TO 177/80 MMHG, HR 106BPM. DR. RANKIN. WITH NEW ORDERS CARRIED OUT
--- NOTE | 2018-03-11 03:12 | NUR ---
GIVEN GABRIEL TREJO PER ORDER. WILL MONITOR PAIN Addendum: 03/11/18 at 3637 by Marilou Griffiths RN WRONG TIME
[2018-03-11] MEDS ORDERED: hydrALAZINE 20 MG/ML VIAL IVP ONE (03:15)
[2018-03-11] MEDS ORDERED: ALBUTEROL SULFATE/IPRATROPIU 3 ML SOL IH PRN (03:20)
[2018-03-11] MEDS ORDERED: HYDROmorphone 2 MG TAB ONE (03:22)
[2018-03-11] MEDS: HYDROmorphone 1 MG/ML AMP IVP ONE ×2 (03:43→04:30)
--- NOTE | 2018-03-11 04:05 | NUR ---
REASSESSED PAIN STILL AT 02/16. GIVEN DILAUDID IV PUSH. Addendum: 03/11/18 at 0523 by Marilou Griffiths RN WRONG TIME
[2018-03-11] MEDS ORDERED: ONDANSETRON 4 MG/2 ML VIAL ONE (04:17)
--- NOTE | 2018-03-11 04:39 | NUR ---
VOMITING 2X NOTED. GIVEN REGLAN. BP AT 155/101. GIVEN HYDRALAZINE IVP
--- NOTE | 2018-03-11 04:52 | NUR ---
GIVEN DILAUDID PO PER MD ORDER. WILL MONITOR PAIN
--- NOTE | 2018-03-11 05:39 | NUR ---
BP DECREASED TO 130/80. WILL CONTINUE TO MONITOR
--- NOTE | 2018-03-11 06:07 | NUR ---
REASSESSED PAIN STILL AT 10/10. GIVEN DILAUDID IV PUSH
[2018-03-11 07:13] LABS: MAGNESIUM 2.3 mg/dL (1.8-2.4); PHOSPHORUS 3.4 mg/dL (2.5-4.9)
[2018-03-11 07:15] LABS: BASOPHILS # (AUTO) 0.1 K/uL (0.00-0.22); HEMATOCRIT 30.6 % (36-48); HEMOGLOBIN 10.1 g/dL (12.0-16.0); LYMPHOCYTES # (AUTO) 1.1 K/uL (2.5-16.5); LYMPHOCYTES % (AUTO) 22.1 % (20.5-51.1); MEAN CORPUSCULAR HEMOGLOBIN 26 pg (27-31); MEAN CORPUSCULAR HGB CONC 33 g/dL (33-37); MONOCYTES # (AUTO) 0.4 K/uL (0.8-1.0); MONOCYTES % (AUTO) 8.7 % (1.7-9.3); NEUTROPHILS # (AUTO) 3.5 K/uL (1.8-7.7); NEUTROPHILS % (AUTO) 68.2 % (42.2-75.2); PLATELET COUNT (AUTO) 381 K/uL (140-450); RED BLOOD CELL COUNT(AUTO) 3.98 MIL/uL (4.20-5.40); RED CELL DISTRIBUTION WIDTH 19.7 % (11.6-13.7); WHITE BLOOD COUNT (AUTO) 5.1 K/uL (4.8-10.8)
--- NOTE | 2018-03-11 07:31 | NUR ---
RECEIVED BEDSIDE REPORT FROM TELETYPESETTER RN. PT SLEEPING, AROUSABLE BY VOICE. WHEN ASKED HOW SHE IS FEELING, PT STATES "I'M TIRED, I JUST WANT TO SLEEP". NO C/O PAIN OR DISCOMFORT AT THIS TIME. LUNGS CTA. HEART RHYTHM REGULAR. PT IS 23 WEEKS . IV SITE ON RT EXT JUGULAR PATENT AND ASYMPTOMATIC, INFUSING IVF PER MD ORDERS. NO DIARRHEA SINCE ADMISSION. CONTACT PRECAUTIONS IN PLACE. HAVE EXPLAINED OT PT THAT WE NEED TO COLLECT STOOL SAMPLE. PT VERBALIZED UNDERSTANDING. ALL SAFETY PRECAUTIONS IN PLACE, WILL CONTINUE TO MONITOR.
[2018-03-11 07:40] LABS: ANION GAP 16.3 (8-16); CARBON DIOXIDE 19.9 mmol/L (21-32); CREATININE 0.5 mg/dL (0.6-1.3); POTASSIUM 3.2 mmol/L (3.5-5.1)
[2018-03-11 08:00] VITALS: BP 130/67
[2018-03-11] MEDS ORDERED: NACL 0.45% 1,000 ML IV SCH (08:00)
[2018-03-11] MEDS ORDERED: FERROUS SULFATE 325 MG TABEC PO SCH (08:00)
[2018-03-11] MEDS ORDERED: VANCOMYCIN 500 MG VIAL PO SCH ×2 (08:06→12:00)
--- NOTE | 2018-03-11 08:23 | NUR ---
PATIENT HAS BEEN SCREENED AND CATEGORIZED HIGH NUTRITION RISK. PATIENT WILL BE SEEN WITHIN 1-2 DAYS OF ADMISSION. 03/11/18-03/12/[address]
[2018-03-11] MEDS ORDERED: HYDROXYCHLOROQUINE 200 MG TAB PO SCH (09:00)
[2018-03-11] MEDS ORDERED: LACTOBACILLUS RHAMNOSUS GG 1 EACH CAP PO SCH (09:00)
[2018-03-11] MEDS ORDERED: MULTIVIT/MIN/CA/FE/FA 1 TAB PO SCH (09:00)
[2018-03-11] MEDS ORDERED: predniSONE 20 MG TAB PO SCH (09:00)
[2018-03-11] MEDS ORDERED: MAG SULF 2000 MG/WATER PREMIX 50 ML IV SCH (09:00)
[2018-03-11] MEDS ORDERED: LABETALOL 100 MG TAB PO SCH (09:00)
[2018-03-11] MEDS ORDERED: VANCOMYCIN HCL 125 MG PO SCH (09:00)
--- NOTE | 2018-03-11 09:05 | NUR ---
RECEIVED ORDER FOR TRANSFER FOR HIGHER LEVEL OF CARE. CALLED CRISTIN, EDITING COMPUTER PUBLISHER AT [facility] AND PER HER REQUEST, FAXED THE FACE SHEET AND H&P TO HER AT [phone].
--- NOTE | 2018-03-11 09:27 | NUR ---
PATIENT STATES VANCO PO TASTES "HORRIBLE". REFUSES TO DRINK IT. WILL ASK PHARMACY IF OTHER FORMS AVAILABLE.
--- NOTE | 2018-03-11 09:34 | NUR ---
PATIENT STATES SHE WILL TAKE SCHEDULED ORAL MEDICATIONS AFTER SHE RECEIVED HER DILAUDID. PT WISHES TO KEEP MEDS AT BEDSIDE AND TAKE WHEN SHE IS READY. AO X4.
--- NOTE | 2018-03-11 09:35 | NUR ---
PER PHARMACY, WE DO NOT HAVE PILL FORM OF VANCO. WILL ASK PT TO BRING FROM HOME IF SHE HAS IT.
[2018-03-11] MEDS ORDERED: HYDROmorphone 1 MG/ML AMP IVP SCH ×2 (09:46→13:30)
--- NOTE | 2018-03-11 09:51 | NUR ---
PER PHARMACY, THEY WILL DISPENSE MCKEON FLAVORED VANCO PO SINCE PT CANNOT TOLERATE TASTE OF THE UNFLAVORED VANCO PO.
--- NOTE | 2018-03-11 10:03 | NUR ---
DR. CEDILLO HAS EXPLAINED POC AND TRANSFER PLANS TO PATIENT. PT VERBALIZED UNDERSTANDING. PT BROUGHT UP CONCERNS OF PAIN CONTROL, ANXIETY, AND INSOMNIA TO DR. WILL MAKE CHANGES TO ORDERS NECESSARY.
[2018-03-11] MEDS ORDERED: ENOXAPARIN 120 MG/0.8 ML SYR SUBQ SCH (10:24)
--- NOTE | 2018-03-11 10:43 | NUR ---
RECEIVED A CALL FROM SHAYAN FROM [place]. SHE SAID TO TRY [facility]. I CALLED [facility] AND FAXED INQUIRY TO THEM AT [phone].
--- NOTE | 2018-03-11 10:57 | NUR ---
OFFERED LOVENOX INJECTION TO PT. SHE STATES SHE WOULD LIKE IT LATER. WILL OFFER AGAIN LATER.
[2018-03-11] MEDS ORDERED: NITR100C7 PO (11:32)
[2018-03-11] MEDS ORDERED: LACT10CA1 PO (11:32)
--- NOTE | 2018-03-11 11:47 | NUR ---
CALLED PHARMACY. THEY WILL BRING VANCO PO. NOTIFIED CRIME SCENE EXAMINER THAT I SPOKE WITH PHARMACIST EARLIER AND PHARMD SAID THEY WILL DISPENSE MCKEON FLAVORED VANCO PO. CRIME SCENE EXAMINER WILL DOUBLE CHECK AND DISPENSE MEDICATION TO UNIT.
[2018-03-11 12:00] VITALS: BP 137/89
[2018-03-11] MEDS ORDERED: PHARMACY COMMENTS MC SCH (12:00)
--- NOTE | 2018-03-11 12:17 | NUR ---
PATIENT CONTINUES TO REFUSE LOVENOX AND VANCO PO. NOTIFIED PHARMACY BUT THEY DO NOT HAVE MCKEON FLAVOR AVAILABLE. PT REFUSES TO MIX UNFLAVORED VANCO WITH JUICE TO MAKE IT MORE TOLERABLE. WILL NOTIFY THAT PATIENT IS REFUSING VANCO. OFFERED PO DILAUDID BUT PT REFUSED, STATES SHE NEEDS TO SPEAK WITH THE NOW. PT ALSO COMPLAINING OF RT SIDED RIB PAIN. TENDERNESS TO PALPATION.
--- NOTE | 2018-03-11 12:26 | NUR ---
NOTIFIED DR. CEDILLO THAT PATIENT WISHES TO SPEAK TO HER, PT REFUSING PO DILAUDID, COMPLAINING OF RT SIDE RIB PAIN. DR. CEDILLO WILL TALK TO PATIENT LATER.
--- NOTE | 2018-03-11 12:37 | NUR ---
DR. CEDILLO HAS SEEN AND EVALUATED PT FOR C/O PAIN. WILL FOLLOW ORDERS WHEN AVAILABLE.
--- NOTE | 2018-03-11 13:23 | NUR ---
APPLIED 2L NC AND ADMINISTERED DILAUDID IVP PER MD ORDERS. WILL CONTINUE TO MONITOR.
--- NOTE | 2018-03-11 13:43 | NUR ---
CALLED [facility] AND SPOKE WITH EDWIGE. SHE SAID THE INFORMATION WAS IN THE HANDS OF THE NURSE. I SPOKE WITH THE NURSE GOLDIE AND SHE SAID SHE PUT IN CALLS TO BOTH MEDICINE AND OB PHYSICIAN, AND SHE IS STILL WAITING FOR CALL BACK. I PUT A CALL IN TO SHAYAN FROM [facility] TO INFORM HER. PHONE [facility] [phone].
--- NOTE | 2018-03-11 14:21 | NUR ---
I CALLED CRISTIN FROM [facility]. SHE SAID SHE SPOKE WITH HER OB DOCTOR, DR. TRUJILLO. I TOLD HER I COULD HAVE OUR RESIDENT CALL HER PHYSCIAN THE PHONE NUMBER FOR DR. TRUJILLO IS [phone] IN[address] CEDILLO TO CALL DR. TRUJILLO. I SPOKE WITH SHAYAN AT [place] AND INFORMED HER THAT [facility] DIDN'T HAVE AN ACCEPTING PHYSICIAN YET, SO NO BED YET. I TOLD HER OUR PHYSICIAN WAS GOING TO SPEAK WITH [facility] PHYSICIAN.
--- NOTE | 2018-03-11 15:00 | NUR ---
I RECEIVED A CALL FROM CRISTIN FROM [facility]. SHE MIGHT HAVE ACCEPTING PHYSICIAN, DR. GAMINO BUT HE WANTED TO SPEAK WITH DR. REYES. I CALLED DR. REYES AND HE SAID TO HAVE THE RESIDENT CALL DR. FLORIAN , PHONE [phone], PAGER [phone]. I INFORMED DR. CEDILLO. I RECEIVED A CALL BACK FROM RCISTIN FROM [facility] SHE SAID THAT THEIR HOSPITALIST DR. GAMINO WOULD NOT ADMIT THIS PATIENT. I SPOKE WITH DR. CEDILLO AND SHE SAID THAT SHE SPOKE WITH NURSE TYLOR PARKS AND THAT DR. TRUJILLO WOULD BE ADMITTING THE PATIENT. I CALLED CRISTIN AT [facility] AND SHE WOULD CHECK AND CALL ME BACK.
--- NOTE | 2018-03-11 15:20 | NUR ---
I SPOKE WITH SHAYAN FROM [facility]. SHE SAID TO ALSO [facility] AND [facility]. AUTH FOR THE HOSPITAL ACCEPTING IS [id number] AUTH FOR [facility] IS [id number]. NOTIFY [facility] TO WHICH FACILITY THE PATIENT GOES TO. PHONE [phone]. SHAYAN [id number]
[2018-03-11] MEDS: POTASSIUM CHLORIDE 10 MEQ TABER PO SCH ×2 (15:30→16:04)
[2018-03-11] MEDS ORDERED: VANCOMYCIN 125MG CAPSULE PO SCH ×2 (15:45→18:00)
[2018-03-11 16:00] VITALS: BP 145/61
[2018-03-11] MEDS: NITROFURANTOIN 100 MG CAP PO SCH ×2 (16:04→16:10)
--- NOTE | 2018-03-11 16:06 | NUR ---
SPOKE WITH CRISTIN AT [facility] AND SHE SAID THEY ARE ACCEPTING THE PATIENT UNDER DR. TRUJILLO TO MED SURG. I CALLED DR. CEDILLO AND SHE SAID MED SURG BED IS OKAY. WAITING FOR BED. I RECEIVED A CALL FROM WILLIE AT [facility] AND SHE WANTED A DR. REYES TO CALL [facility]. I CALLED DR. REYES AND INFORMED HIM TO PLEASE CALL [facility] [phone].
--- NOTE | 2018-03-11 16:17 | NUR ---
RECEIVED A CALL FROM CRISTIN AT [facility]. THE PATIENT CAN GO TO ROOM [address]UJ[address]O. CALL REPORT TO [phone]. HAVE [facility] STOP IN ER FIRST. CALLED DR. CEDILLO AND INFORMED HER CALLED DR. REYES AND INFORMED HIM. CALLED SHAYAN IBRAHIM CLAYTON INFORMED HER. I RECEIVED A CALL FROM WILLIE FROM [facility] AND SHE SAID DR. REYES SPOKE WITH THEIR DOCTOR AND THEY CAN ACCEPT THE PATIENT. SHE SAID THEY WILL LOOK FOR A BED. I INFORMED HER THAT THE PATIENT WILL GO TO [facility].
--- NOTE | 2018-03-11 16:27 | NUR ---
CALLED TO [facility] AND SET UP TRANSPORT FOR 5:15P.M. [facility] TO STOP IN ER FIRST. INFORMED [facility]. PATIENT WILL GO TO ROOM [address] TRUJILLO PHONE REPORT [phone]. [facility] AUTH [id number].
--- NOTE | 2018-03-11 16:45 | NUR ---
PER COLON THERAPIST, PT WILL BE PICKED UP BY [facility] AT 1715
--- NOTE | 2018-03-11 17:10 | NUR ---
PT SCREAMING AND CRYING OUT, SAYS SHE HAS 10/10 PAIN. REFUSING DIL[address]ID PO. DR. CEDILLO IN ROOM TO SPEAK WITH PATIENT. WE CAN ONLY GIVE PO DILAUDID AT THIS POINT. EXPLAINED TO PT THAT ONCE SHE IS TRANSFERRED TO [facility], SHE WILL BE ABLE TO RECEIVE PAIN MEDS ORDERED BY THEIR DOCTORS. PT VERBALIZED UNDERSTANDING. PT REFUSING TO LISTEN TO DISCHARGE TEACHING OR SIGN D/C PAPERS AT THIS TIME. D/C PAPERWORK HAS BEEN PLACED WITH PT BELONGINGS. IV AT RT EXT JUGULAR LEFT IN PLACE. ID BANDS REMOVED. WILL CONTINUE TO MONITOR. Addendum: 03/11/18 at 1830 by Ann Jurado Meng, RN PT REFUSED FLU VACCINE AND PNEUMOVAX.
[2018-03-11] MEDS ORDERED: HYDROmorphone 2 MG TAB PO ONE (17:25)
--- NOTE | 2018-03-11 17:35 | NUR ---
[facility] HAVE PICKED UP PT. PT IN STABLE CONDITION.
--- NOTE | 2018-03-11 17:42 | NUR ---
CALLED [facility] FOR REPORT. REPORT GIVEN TO AMERICA ROMERO. ENDORSED POC, DX, HX, IMAGING, LABS, VITALS. PT IS 23 WEEKS . NO STOOL DURING STAY HERE AT [facility]. EXPLAINED PT IS HIGH RISK WITH , PROTEINURIA, INCREASED BP, HX HELLP SYNDROME, HYPERCOAGULABLE STATE AND NEEDS SPECIALISTS TO CONSULT WITH. [facility] CROSS VERBALIZED UNDERSTANDING.
--- NOTE | 2018-03-11 20:07 | NUR ---
GAVE 2 TABLETS DILAUDID PO AND LOVENOX TO HOUSE SUP ZEV BECAUSE PT HAD BEEN D/C FROM SYSTEM SO CANNOT RETURN TO [facility].
[2018-03-12] MEDS ORDERED: ENOXAPARIN 120 MG/0.8 ML SYR SUBQ SCH (09:00)
[2018-03-12 12:13] LABS: FOLIC ACID 12.3 ng/mL (>3.0)
== END 2018-03-11 17:35 | disposition short-term general hospital (02) | DRG 566 ==
LOC: MED 20:09 → MTU 03-11 02:09 → MERGE 03-11 02:09
PROVIDERS: ADMIT Family Medicine; ATTEND Family Medicine
DX: O21.0 Mild hyperemesis gravidarum (principal); O14.22 HELLP syndrome (HELLP), second trimester; E43 Unspecified severe protein-calorie malnutrition; M32.9 Systemic lupus erythematosus, unspecified; J18.9 Pneumonia, unspecified organism; A04.72 Enterocolitis due to Clostridium difficile, not specified as recurrent; E83.42 Hypomagnesemia; O14.92 Unspecified pre-eclampsia, second trimester; O23.42 Unspecified infection of urinary tract in pregnancy, second trimester; O26.892 Other specified pregnancy related conditions, second trimester; M06.9 Rheumatoid arthritis, unspecified; O99.512 Diseases of the respiratory system complicating pregnancy, second trimester; I05.9 Rheumatic mitral valve disease, unspecified; J45.909 Unspecified asthma, uncomplicated; O99.012 Anemia complicating pregnancy, second trimester; D64.9 Anemia, unspecified; E87.6 Hypokalemia; F41.1 Generalized anxiety disorder; M79.7 Fibromyalgia; E78.5 Hyperlipidemia, unspecified; Z91.14 Patient's other noncompliance with medication regimen; Z3A.23 23 weeks gestation of pregnancy; Z88.1 Allergy status to other antibiotic agents; Z88.0 Allergy status to penicillin; Z88.8 Allergy status to other drugs, medicaments and biological substances; Z68.29 Body mass index [BMI] 29.0-29.9, adult
CPT/HCPCS: 36415; 76805; 80048; 80053; 80305; 81001; 82150; 82607; 82728; 82746; 83540; 83605; 83690; 83735; 84100; 84134; 84443; 84702; 85025; 85045; 85610; 85660; 85730; 87040; 87081; 87086; 93005; 94640; 96361; 96365; 96375; 96376; 99285; J0360; J1170; J1200; J1650; J2270; J2405; J2765; J3370; J3475; J3490; J7512; J7620; Q0092

== ENCOUNTER 2018-04-05 07:29 | Emergency (ER) | payer OTHER ==
[~2018-04-05] VITALS: Ht 165.1 cm; Wt 63.5 kg
[~2018-04-05 07:29] MED LIST changes: -ACET-2863 PO; -AZAT50TA PO; +DOCU-299 PO; +GABA300C PO; -HYDR1LIQ6 PO; +HYDR2TAB6 PO; +LABE300T5 PO; +LACT10CA1 PO; -LEFL20TA18 PO; +NITR100C7 PO; -QUET100T PO; +VANC125C11 PO
[2018-04-05 07:33] VITALS: BP 142/98
[2018-04-05] MEDS ORDERED: fentaNYL 0.05 MG/ML VIAL IVP ONE (07:55)
[2018-04-05] MEDS: NACL 0.9% 1,000 ML IV ONE (07:55)
[2018-04-05] MEDS: fentaNYL 0.05 MG/ML VIAL IM ONE (08:01)
[2018-04-05 08:41] LABS: BASOPHILS % (AUTO) 0.4 % (0.0-2.0); HEMATOCRIT 34.8 % (36-48); HEMOGLOBIN 11.4 g/dL (12.0-16.0); LYMPHOCYTES # (AUTO) 0.9 K/uL (2.5-16.5); MEAN CORPUSCULAR HEMOGLOBIN 27 pg (27-31); MEAN CORPUSCULAR HGB CONC 33 g/dL (33-37); MEAN CORPUSCULAR VOLUME 83.1 fL (80-94); MONOCYTES # (AUTO) 0.5 K/uL (0.8-1.0); NEUTROPHILS # (AUTO) 5.1 K/uL (1.8-7.7); NEUTROPHILS % (AUTO) 77.6 % (42.2-75.2); PLATELET COUNT (AUTO) 538 K/uL (140-450); RED BLOOD CELL COUNT(AUTO) 4.19 MIL/uL (4.20-5.40); RED CELL DISTRIBUTION WIDTH 18.8 % (11.6-13.7); WHITE BLOOD COUNT (AUTO) 6.6 K/uL (4.8-10.8)
[2018-04-05 08:54] LABS: ANION GAP 13.4 (8-16); CARBON DIOXIDE 23.4 mmol/L (21-32); CREATININE 0.7 mg/dL (0.6-1.3); POTASSIUM 3.8 mmol/L (3.5-5.1)
[2018-04-05 09:02] LABS: ALBUMIN 2.9 g/dL (3.4-5.0); TOTAL BILIRUBIN 0.4 mg/dL (0.0-1.0)
[2018-04-05 09:12] LABS: APPEARANCE,URINE CLOUDY (CLEAR); BILIRUBIN,URINE NEGATIVE (NEGATIVE); BLOOD, URINE LARGE (NEGATIVE); COLOR,URINE YELLOW (YELLOW); LEUKOCYTE ESTERASE ,URINE TRACE (NEGATIVE); NITRITE, URINE NEGATIVE (NEGATIVE); UGLUCOSE NEGATIVE (NEGATIVE)
[2018-04-05 09:26] LABS: RBC,URINE 11-20 (MOD) /HPF (0-5)
[2018-04-05 09:28] LABS: WBC,URINE 6-15 (FEW) /HPF (0-5)
[2018-04-05] MEDS: ONDANSETRON 4 MG/2 ML VIAL IVP ONE ×2 (10:19→14:13)
[2018-04-05] MEDS: fentaNYL 0.05 MG/ML VIAL IVP ONE ×2 (10:19→11:46)
[2018-04-05] MEDS ORDERED: LEVOFLOXACIN 500 MG/D5W PREMIX 100 ML IV ONE (11:15)
[2018-04-05] MEDS: LEVOFLOXACIN 500 MG TAB PO ONE (11:27)
[2018-04-05] MEDS: MORPHINE SULFATE 4 MG/ML SYR IVP ONE ×5 (14:13→22:23)
[2018-04-05] MEDS: diphenhydrAMINE 50 MG/ML VIAL IVP ONE (20:03)
[2018-04-05] MEDS ORDERED: MORPHINE SULFATE 4 MG/ML SYR ONE (22:16)
[2018-04-05 22:20] VITALS: BP 138/87
== END 2018-04-05 22:21 | disposition short-term general hospital (02) ==
LOC: MED 07:29 → CANBEDREQ 10:31 → MED 22:21
DX: R10.9 Unspecified abdominal pain (principal); M79.7 Fibromyalgia; M06.9 Rheumatoid arthritis, unspecified; L93.0 Discoid lupus erythematosus; J45.909 Unspecified asthma, uncomplicated; Z79.899 Other long term (current) drug therapy; Z88.0 Allergy status to penicillin; Z88.6 Allergy status to analgesic agent; Z88.1 Allergy status to other antibiotic agents; Z88.5 Allergy status to narcotic agent; Z88.8 Allergy status to other drugs, medicaments and biological substances
CPT/HCPCS: 36415; 74176; 80053; 81001; 81025; 83605; 83690; 84702; 85025; 85045; 87040; 87045; 87086; 87186; 87427; 89055; 96372; 96374; 96375; 96376; 99285; J1200; J2270; J2405; J3010